=== PATIENT | male | born 1955 | race Caucasian/White ===

== ENCOUNTER 2016-06-29 11:18 | Day surgery (SDC) | payer MEDICARE, OTHER ==
[~2016-06-29] VITALS: Ht 175.3 cm; Wt 74.3 kg
[2016-06-29 13:12] VITALS: Ht 175.3 cm; Wt 74.3 kg
[2016-06-29] MEDS ORDERED: ALEN10TA18 PO (13:24)
[2016-06-29] MEDS ORDERED: GLIP-95 PO (13:24)
[2016-06-29] MEDS ORDERED: LANT3I SC (13:24)
[2016-06-29] MEDS ORDERED: HIV MED (13:24)
[2016-06-29] MEDS ORDERED: BENA10TA48 PO (13:24)
[2016-06-29] MEDS ORDERED: ASPI-664 PO (13:24)
[2016-06-29] MEDS ORDERED: PRAV80TA27 PO (13:24)
[2016-06-29] MEDS ORDERED: METF500T4 PO (13:24)
[2016-06-29 13:44] VITALS: BP 118/73; PULSE 77; RESP 17
[2016-06-29] MEDS ORDERED: LIDOCAINE 100 MG SYRINGE ONE (13:52)
[2016-06-29] MEDS ORDERED: PHENYLephrine (100 MCG/ML) 5ML SYG ONE (13:52)
[2016-06-29] MEDS ORDERED: PROPOFOL 40 ML ONE (13:52)
[2016-06-29 14:24] VITALS: BP 69/5; PULSE 78; RESP 15
[2016-06-29] MEDS ORDERED: GLYCOPYRROLATE 0.4 MG INJ ONE (14:25)
[2016-06-29] MEDS ORDERED: EPHEDrine SULFATE 50 MG/5 ML SYG ONE (14:25)
[2016-06-29 15:05] VITALS: BP 119/76; PULSE 87; RESP 20
--- NOTE | 2016-06-29 17:40 | GILP ---
DATE OF PROCEDURE: 06/29/2016 NAME OF PROCEDURES: 1. Esophagogastroduodenoscopy and biopsy. 2. Colonoscopy. SURGEON: Johanne Monsivais MD PREOPERATIVE DIAGNOSES: 1. Positive occult blood in stool. 2. Chronic heartburn. POSTOPERATIVE DIAGNOSES: 1. Gastroesophageal reflux disease. 2. Gastritis. 3. Gastric mucosal biopsies were taken for Helicobacter pylori test. 4. Colonoscopy all the way to the cecum. 5. Poor prep making the exam very suboptimal. 6. Internal hemorrhoids. INDICATION FOR THE PROCEDURE: Mr. Alexander Almodovar is a 61-year-old male patient who had chronic heartbu rn, not responding to therapy. The patient also had positive occult blood in stool. The patient wa s scheduled for endoscopy and colonoscopy for further evaluation. The procedures and possible complications were well explained to the patient, he understood and cons ented to the procedure. DESCRIPTION OF PROCEDURE: Under the influence of anesthesia, the gastroscope was carefully introduc ed into the esophagus and under direct vision, it was advanced to the stomach and through the pyloru s into the duodenal bulb and descending duodenum. FINDINGS: ESOPHAGUS: The patient had gastroesophageal reflux disease. STOMACH: He also had gastritis with erosions. Gastric mucosal biopsies were taken for H. pylori te st. DUODENUM: Normal. The colonoscope was carefully introduced in the rectum and under direct vision, it was advanced all the way to the cecum. FINDINGS: The patient had poor prep making the exam very suboptimal. The patient was noted to have internal hemorrhoids. He tolerated the procedures very well and there was no complication from the procedures. At the end of the procedures, he was awake with stable vital signs and he was discharged home to the care of h is family. IMPRESSION: 1. Gastroesophageal reflux disease. 2. Gastritis with erosions. 3. Gastric mucosal biopsies were taken for Helicobacter pylori test. 4. Colonoscopy all the way to the cecum. 5. Poor prep making the exam very suboptimal. 6. Internal hemorrhoids. PLAN: 1. Omeprazole 40 mg p.o. q.a.m. 2. Await H. pylori test report. 3. Because of the poor prep and suboptimal nature of the examination, would recommend repeat colono scopy in 1 year. Dictated By: JOHANNE VARELA/ZEB Conf#: [id number] [place], [place] [address]#: [id number] CC: JOHANNE MONSIVAIS MD;*EndCC*
== END 2016-06-29 16:18 | disposition home or self-care (01) ==
LOC: GIL 11:18
PROVIDERS: ATTEND Internal Medicine Gastroenterology
DX: R19.5 Other fecal abnormalities (principal); K21.9 Gastro-esophageal reflux disease without esophagitis; K29.70 Gastritis, unspecified, without bleeding; K64.8 Other hemorrhoids; E78.5 Hyperlipidemia, unspecified; E11.9 Type 2 diabetes mellitus without complications
CPT/HCPCS: 43239; 45378; 82962; 87081; J2001; J2370